=== PATIENT | female | born 1965 | race Caucasian/White ===

== ENCOUNTER 2020-04-01 11:55 | Emergency (ER) | payer BC, OTHER ==
--- NOTE | 2020-04-01 12:10 | EDM.PDOC ---
ED HPI GENERAL MEDICAL PROBLEM - General Chief Complaint: Upper Extremity Injury/Pain Stated Complaint: Left shoulder pain Time Seen by Provider: 04/01/20 12:00 Source of Information: Reports: Patient History Limitations: Reports: No Limitations - History of Present Illness INITIAL COMMENTS - FREE TEXT/NARRATIVE: Patient states she has a chief complaint of left shoulder pain soreness and stiffness. States it has been going on since receiving her Covid vaccine . She states and Friday she could barely lift her shoulder up when an intense dull ache. She has been using ice and taking Tylenol and Aleve as scheduled pretty much [id number] which is to help some. But she believes that the injection may have been high at the site which may have set up for bursitis in her shoulder. She denies any fever or heat numbness or tingling to the site or extremity. She has no other complaints at this time Duration: Day(s): Quality: Reports: Ache, Dull, Pressure Severity: Moderate Improves with: Reports: Medication Worsens with: Reports: Movement Associated Symptoms: Reports: No Other Symptoms Treatments [employer]: Reports: Acetaminophen, NSAIDS - Related Data Allergies Allergy/AdvReac Type Severity Reaction Status Date / Time adhesive Allergy Blisters Verified 12/31/19 08:24 chlorhexidine Allergy Blisters Verified 12/31/19 08:24 Sulfa (Sulfonamide Allergy Hives Verified 12/31/19 08:21 Antibiotics) diphenhydramine AdvReac Tachycardia Verified 12/31/19 08:24 [From Benadryl] vancomycin AdvReac Redness Verified 12/31/19 08:24 Past Medical History - Infectious Disease History Infectious Disease History: Reports: Novel Coronavirus Review of Systems - Review of Systems Review Of Systems: See Below Constitutional: Reports: No Symptoms Eyes: Reports: No Symptoms Ears: Reports: No Symptoms Nose: Reports: No Symptoms Mouth/Throat: Reports: No Symptoms Respiratory: Reports: No Symptoms Cardiovascular: Reports: No Symptoms GI/Abdominal: Reports: No Symptoms Musculoskeletal: Reports: Shoulder Pain, Arm Pain Skin: Reports: No Symptoms Neurological: Reports: No Symptoms Psychiatric: Reports: No Symptoms ED EXAM, GENERAL - Physical Exam Exam: See Below Exam Limited By: No Limitations General Appearance: Alert, WD/WN, No Apparent Distress Extremities: Normal Inspection, Normal Capillary Refill, Other (Exam to the left shoulder patient has normal pronation supination has decreased range of motion laterally to 90 degrees negative drop arm there is no noted erythema calor or crepitus over the site or the shoulder girdle she is neurovascular intact full range of motion with the elbow and the wrist). No: Normal Range of Motion, Non- Tender Neurological: Alert, Normal Cognition, Normal Gait, No Motor/Sensory Deficits Psychiatric: Normal Affect, Normal Mood Skin Exam: Warm, Dry, Intact, Normal Color, No Rash Course - Vital Signs Text/Narrative:: Medications called in the pharmacy is Toradol 10 mg 1 p.o. every 6 to 8 hours x 5 days prednisone 40 mg 1 p.o. daily x7 days patient is educated to apply ice heat as tolerated and as needed may continue to take Tylenol follow-up with primary care provider if anything changes or gets worse Departure - Departure Time of Disposition: 12:10 Disposition: Home, Self-Care 01 Condition: Good Clinical Impression: Deltoid bursitis - Discharge Information *PRESCRIPTION DRUG MONITORING PROGRAM REVIEWED*: No *COPY OF PRESCRIPTION DRUG MONITORING REPORT IN PATIENT SONDRA: No Forms: ED Department Discharge - Problem List & Annotations (1) Deltoid bursitis SNOMED Code(s): 91744592 Code(s): M75.50 - BURSITIS OF UNSPECIFIED SHOULDER Status: Acute
== END 2020-04-01 12:15 | disposition home or self-care (01) ==
LOC: VM.ED 11:55
DX: M75.52 Bursitis of left shoulder (principal); Z86.16 Personal history of COVID-19; Z91.048 Other nonmedicinal substance allergy status; Z88.8 Allergy status to other drugs, medicaments and biological substances; Z88.2 Allergy status to sulfonamides; Z88.1 Allergy status to other antibiotic agents
CPT/HCPCS: 99283

== ENCOUNTER 2023-01-09 10:35 | Day surgery (SDC) | payer BC ==
[~2023-01-09 10:35] MED LIST: Lactated Ringers 1,000 ML IV SCH
[2023-01-09] MEDS ORDERED: Midazolam 1 MG/ML 2 ML SDV ONE (11:31)
[2023-01-09] MEDS ORDERED: fentaNYL 100 MCG/2 ML SDV ONE (11:31)
[2023-01-09] MEDS ORDERED: Propofol 200 MG/20 ML SDV ONE (11:31)
== END 2023-01-09 13:47 | disposition home or self-care (01) ==
LOC: VM.SDS 10:35
PROVIDERS: ATTEND Family Medicine
DX: Z12.11 Encounter for screening for malignant neoplasm of colon (principal); K51.40 Inflammatory polyps of colon without complications; K63.89 Other specified diseases of intestine; K57.30 Diverticulosis of large intestine without perforation or abscess without bleeding; F32.9 Major depressive disorder, single episode, unspecified; E78.5 Hyperlipidemia, unspecified; G43.709 Chronic migraine without aura, not intractable, without status migrainosus; F41.1 Generalized anxiety disorder; M81.0 Age-related osteoporosis without current pathological fracture; M77.8 Other enthesopathies, not elsewhere classified; M85.88 Other specified disorders of bone density and structure, other site; Z80.0 Family history of malignant neoplasm of digestive organs; Z88.8 Allergy status to other drugs, medicaments and biological substances; Z88.2 Allergy status to sulfonamides; Z88.1 Allergy status to other antibiotic agents; Z91.048 Other nonmedicinal substance allergy status; Z79.899 Other long term (current) drug therapy
CPT/HCPCS: 00811; 45380; 77080; J2250; J2704; J3010; J7120

== ENCOUNTER 2024-10-12 11:48 | Emergency (ER) | payer BC ==
[2024-10-12] MEDS ORDERED: Sodium Chloride 0.9% 10 ML Syringe FLUSH PRN (11:50)
[2024-10-12 12:06] LABS: BASOPHILS ABSOLUTE AUTO 0.1 x10^3/uL (0.0-0.2); BASOPHILS PERCENT AUTO 0.8 % (0.2-1.2); EOSINOPHILS ABSOLUTE AUTO 0.0 x10^3/uL (0.0-0.5); EOSINOPHILS PERCENT AUTO 0.4 % (0.0-4.0); IMMATURE GRAN ABSOLUTE AUTO 0.01 x10^3/uL (0.00-0.07); IMMATURE GRAN PERCENT AUTO 0.10 % (0.00-0.43); LYMPHOCYTES ABSOLUTE AUTO 2.9 x10^3/uL (1.0-4.8); LYMPHOCYTES PERCENT AUTO 36.0 % (25.0-50.0); MONOCYTES ABSOLUTE AUTO 0.7 x10^3/uL (0.0-0.8); MONOCYTES PERCENT AUTO 8.3 % (2.0-11.0); NEUTROPHILS ABSOLUTE AUTO 4.3 x10^3/uL (1.8-7.7); NEUTROPHILS PERCENT AUTO 54.4 % (50.0-80.0); PLATELET COUNT,PLT 254 x10^3/uL (130-400); RED BLOOD CELL COUNT 4.36 x10^6/uL (4.00-5.50); WHITE BLOOD CELL COUNT,WBC 8.0 x10^3/uL (4.0-10.0)
[2024-10-12] MEDS: Ondansetron 4 MG/2 ML SDV IVPUSH ONE (12:06)
[2024-10-12 12:33] LABS: A/G RATIO 1.2; ALANINE AMINOTRANSFERASE,ALT 24.0 U/L (14-59); ASPARTATE AMNIOTRANSFERASE,AST 25.0 U/L (15-37); BILIRUBIN TOTAL 0.3 mg/dL (0.2-1.0); BLOOD UREA NITROGEN,BUN 22.0 mg/dL (7-18); CARBON DIOXIDE,CO2 26.0 mmol/L (21-32); CHLORIDE,CL 103.0 mmol/L (98-107); CREATINE KINASE,CK 145.0 U/L (26-192); CREATININE 0.9 mg/dL (0.55-1.02); EST CRCL DRUG DOSING (CG) 67.87 mL/min; GLUCOSE RANDOM 101.0 mg/dL (70-99); POTASSIUM,K 4.2 mmol/L (3.5-5.1); PROTEIN TOTAL,TP 7.7 g/dL (6.4-8.2); SODIUM,NA 140.0 mmol/L (136-145)
[2024-10-12 12:34] LABS: ESTIMATED GFR 75.0 mL/min (>=60)
[2024-10-12] MEDS: Iopamidol 755 Mg/ML 100 ML Bottle IVPUSH ONE (13:20)
== END 2024-10-12 15:45 | disposition short-term general hospital (02) ==
LOC: VM.ED 11:48
DX: M54.6 Pain in thoracic spine (principal); K81.0 Acute cholecystitis; R03.0 Elevated blood-pressure reading, without diagnosis of hypertension; Z88.2 Allergy status to sulfonamides; Z88.8 Allergy status to other drugs, medicaments and biological substances
CPT/HCPCS: 36415; 71275; 80053; 82550; 83690; 84484; 85025; 93005; 93010; 96374; 96375; 96376; 99284; 99285-25; J0696; J1171; J1920; J2270; J2405; Q9967